=== PATIENT | female | born 1950 ===

== ENCOUNTER 2021-03-27 06:00 | Day surgery (SDC) | payer OTHER ==
[~2021-03-27 06:00] MED LIST: BUPROPION; FENOFIBRATE150 MG; HORIZANT600 MG; LEVOXYL50 MCG; LODOSYN25 MG; SERTRALINE; SIMVASTATIN
[2021-03-27] MEDS ORDERED: TRAMADOL HCL50 MG PO (08:34)
[2021-03-27] MEDS ORDERED: Septra Ds Tablet PO (08:34)
== END 2021-03-27 11:25 | disposition home or self-care (01) ==
LOC: CIR.AMB 06:00
PROVIDERS: ATTEND Orthopaedic Surgery Sports Medicine
DX: G56.02 Carpal tunnel syndrome, left upper limb (principal); M65.842 Other synovitis and tenosynovitis, left hand; Z20.822 Contact with and (suspected) exposure to COVID-19